=== PATIENT | male | born 1995 | race Caucasian/White ===

== ENCOUNTER 2017-12-29 02:53 | Emergency (ER) | payer BC ==
[~2017-12-29] VITALS: Ht 180.3 cm; Wt 77.3 kg
[2017-12-29 02:58] VITALS: TEMP 98.4
[2017-12-29] MEDS ORDERED: ABSORICA40 MG PO (03:25)
[2017-12-29 03:38] LABS: BASO % 0.6 % (0.0-2.0); EOS % 0.8 % (0-4.0); GRAN # 3.4 (1.4-6.5); GRAN % 63.7 % (42.2-75.2); HEMATOCRIT 40.6 % (42.0-52.0); HEMOGLOBIN 14.4 g/dl (13.5-18.0); LYMPH # 1.4 (1.2-3.4); LYMPH % 26.9 % (20.0-51.0); MEAN CELL VOLUME 83 fl (80.0-100.0); MEAN CORPUSCULAR HEMOGLOBIN 30 pg (27.0-31.0); MEAN CORPUSCULAR HGB CONC 36 g/dl (33.0-37.0); MEAN PLATELET VOLUME 9.5 fl (7.4-10.4); MONO # 0.4 (0.1-0.6); MONO % 7.8 % (1.7-9.3); PLATELET COUNT 171 K/mm3 (130-400); RED BLOOD COUNT 4.87 M/mm3 (4.20-5.60); REDCELL DISTRIBUTION WIDTH-CV 12.2 % (11.5-14.5)
[2017-12-29 03:48] LABS: ALBUMIN 4.3 gm/dL (3.5-5.0); BILIRUBIN,TOTAL 0.6 mg/dL (0.0-1.0); CALCIUM 8.2 mg/dL (8.4-10.2); CREATININE, serum 1.15 mg/dL (0.66-1.25); TOTAL PROTEIN 7.1 gm/dL (6.4-8.2)
[2017-12-29 05:16] VITALS: BP 122/62; PULSE 73
== END 2017-12-29 05:43 | disposition short-term general hospital (02) ==
LOC: COL.ER 02:53
PROVIDERS: Emergency Medicine
DX: S02.82XA Fracture of other specified skull and facial bones, left side, initial encounter for closed fracture (principal); S06.4X0A Epidural hemorrhage without loss of consciousness, initial encounter; Y04.8XXA Assault by other bodily force, initial encounter; Y92.410 Unspecified street and highway as the place of occurrence of the external cause
CPT/HCPCS: J2405; J3010; J7030

== ENCOUNTER 2019-01-17 00:57 | Emergency (ER) | payer BC ==
[~2019-01-17] VITALS: Ht 180.3 cm; Wt 80.9 kg
[2019-01-17 00:57] VITALS: TEMP 98.1
[~2019-01-17 00:57] MED LIST: ABSORICA40 MG PO
[2019-01-17 03:45] VITALS: BP 131/85; PULSE 92
== END 2019-01-17 03:55 | disposition home or self-care (01) ==
LOC: COL.ER 00:57
DX: F10.129 Alcohol abuse with intoxication, unspecified (principal)
CPT/HCPCS: J2405; J7030